=== PATIENT | female | born 1935 | race Caucasian/White ===

== ENCOUNTER 2024-04-29 14:38 | Emergency (ER) | payer MEDICARE, SELFPAY ==
[2024-04-29 14:40] VITALS: BP 182/88
[2024-04-29 16:55] LABS: % Basophils 0.7 % (0-2); % Eosinophils 1.7 % (0-6); % Immature Granulocytes 0.2 % (0-0.5); % Lymphocytes 30.4 % (20.5-51.1); % Monocytes 7.1 % (1.7-9.3); % Neutrophils 59.9 % (42.2-75.2); Absolute Eosinophils 0.1 10^3/uL (0-0.7); Absolute Lymphocytes 1.8 10^3/uL (1.2-3.4); Absolute Monocytes 0.4 10^3/uL (0.1-0.6); Absolute Neutrophils 3.6 10^3/uL (1.4-6.5); Hemoglobin 12.8 g/dL (12.0-16.0); Mean Corp Hgb Conc. 34.6 g/dL (33.0-37.0); Mean Corpuscular Hgb 29.6 pg (27.0-31.0); Mean Corpuscular Volume 85.5 fL (81.0-99.0); Mean Platelet Volume 10.7 fL (7.4-10.4); Nucleated Red Blood Cells % 0 %; Platelet Count 175 10^3/uL (130-400); Red Blood Cell Count 4.33 10^6/uL (4.20-5.40); Red Cell Dist. Width 14.6 % (11.5-14.5); White Blood Cell Count 5.9 10^3/uL (4.8-10.8)
--- NOTE | 2024-04-29 16:59 | ED.GENMED ---
History of Present Illness
General
Chief Complaint: Rectal Bleeding
Time Seen by Provider: 04/29/24 16:00
History of Present Illness
History of Present Illness:
88-year-old female with reported history of rectal cancer presenting to the emergency department for a second opinion. Patient reports that she has been told that her cancer is nonoperative, is on palliative care. She takes tramadol for pain. She
is having worsening of her rectal pain, and would like a surgeon to remove her tumor. She reports blood per rectum. She reports history of appendectomy in the past as well as colostomy. She denies chest pain or difficulty breathing. She notes
nausea without vomiting. Denies fever. Reports that she had been getting her care at [facility]. She has never had chemotherapy. Denies additional acute medical complaints
Phy Exam
Physical Exam
Physical Exam:
General: no clinical signs of dehydration, nontoxic and in no acute distress
HEENT: protecting airway
Neck: appears supple
CV: Normal heart rate, regular rhythm, no evidence of cyanosis
Resp: No accessory muscle use, no increased work of breathing, lungs clear to auscultation bilaterally
Abd: Soft and non-distended, no tenderness to palpation, colostomy in place to left lower quadrant
Extremities: No deformities, no swelling, no erythema, pulses and sensation intact
Neuro: alert, no focal neurologic deficit
: deferred
Rectal: No anita blood per rectum
Psych: Normal affect
Skin: Intact
Course
Orders/Labs/Results
Orders:
Orders
04/29/24 16:38
CT Abd/pelvis W Iv Cont Urgent
Comment:
Reason For Exam: rectal cancer, increased pain
04/29/24 16:42
Complete Blood Count/With Diff Urgent
Comprehensive Metabolic Panel Urgent
PTT Urgent
Prothrombin Time Urgent
04/29/24 19:46
Ketorolac [Toradol] 15 mg IV NOW STA
Abnormal Lab Results
04/29/24
16:42
RDW 14.6 H %
(11.5-14.5)
MPV 10.7 H fL
(7.4-10.4)
Carbon Dioxide 32 H mmol/L
(22-30)
BUN 25 H mg/dl
(7-17)
AST 38 H U/L
(14-36)
04/29/24 16:42
04/29/24 16:42
Vital Signs
Initial and Last Documented VS:
Initial Vital Signs
Temp Pulse Resp BP Pulse Ox
98.1 F 93 20 182/88 93
04/29/24 14:40 04/29/24 14:40 04/29/24 14:40 04/29/24 14:40 04/29/24 14:40
Last Documented Vital Signs
Temp Pulse Resp BP Pulse Ox
98.1 F 91 20 174/73 95
04/29/24 14:40 04/29/24 17:44 04/29/24 17:44 04/29/24 17:44 04/29/24 17:44
MDM/Problems Addressed
MDM/Problems Addressed:
88-year-old female with history of rectal cancer presenting for second opinion for operative removal of her rectal cancer. Vital signs on arrival are significant for hypertension.
On exam, patient is in no acute distress, tearful and anxious. No records of patient from this hospital and her malignancy. No family contacts as well. For this reason, unclear details regarding patient's malignancy and operative possibilities.
For this reason we will obtain laboratory analysis and CT imaging. Will try to touch base with family
17:50 -discussed with [id number] Patience Lindquist in detail. She notes that patient has been evaluated for her cancer, diagnosed with stage IIIb back in November, rectal carcinoma. Patient has refused chemotherapy and radiation. She is only
looking for surgical intervention to remove the tumor in her rectum. She was initially seen at [facility], however then sought care at [facility]. A surgeon at [facility] had agreed to do the surgery, however had told her that it would be a
difficult recovery time so patient had declined the surgery. Patient is currently home on hospice, however has not been taking her medications. She only takes tramadol at nighttime, refuses to take medication during the daytime. She is again
looking for another surgeon to take out her tumor.
20:00 -patient's labs unremarkable. CT consistent with rectal carcinoma, without additional acute findings. Extensive conversation had with patient, no emergent reason for admission. Will provide information for colorectal surgery for patient
second opinion. Patient will return home for her palliative care. Encouraged her to take her pain medications as directed. Return precautions discussed and patient verbalized understanding
*Critical Care Note
Total Time (30-74mins, 75-104mins- exclusive of procedures): Not Applicable
ED Attending Note
-
Portions of this chart may have been created with voice recognition software.� Occasional wrong word or��sound alike� substitutions may have occurred due to the inherent limitations of voice recognition software.
Discharge Plan
Departure
Prescriptions:
No Action
aspirin 81 mg Tablet,Delayed Release (Dr/Ec)
162 mg PO DAILYPRN PRN (Reason: mild pain)
tramadol 50 mg Tablet
50 mg PO Q6HPRN PRN (Reason: moderate pains)
Patient Comments:
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
Preparation H Cream
1 applic AK DAILYPRN PRN (Reason: hemmorriods)
zinc sulfate 50 mg zinc (220 mg) Tablet
50 mg PO DAILY
ascorbic acid (vitamin C) [Vitamin C] 500 mg Tablet
500 mg PO DAILY
ICaps 3,945-1-326-75 dpwn-si-id-unit Tablet Extended Release
1 tab PO DAILY
cholecalciferol (vitamin D3) [Vitamin D3] 50 mcg (2,000 unit) Capsule
50 mcg PO DAILY
magnesium oxide 400 mg magnesium Tablet
400 mg PO DAILY
Referrals:
UNKNOWN - PT DOES,NOT KNOW [Family Provider] -
Interventions
Interventions:
*Risk Screen - Suicide Last Done: 04/29/24 14:40
*General Assessment Last Done: 04/29/24 14:40
*Neglect/Abuse Screening Last Done: 04/29/24 14:40
ED- Fall Risk Assessment Last Done: 04/29/24 14:45
XS-Xbpbgz-Jqzobspggt Assessment Last Done: 04/29/24 14:45
ED- Cardiac Assessment Last Done: 04/29/24 14:45
ED- Pulmonary Assessment Last Done: 04/29/24 14:45
Discharge Date and Time
Print Language: DOMINICAN
[2024-04-29 17:03] LABS: INR 1.08; PT 13.8 Sec (11.4-14.6)
[2024-04-29 17:10] LABS: ALT (SGPT) 32 U/L (0-35); AST (SGOT) 38 U/L (14-36); Alkaline Phosphatase 55 U/L (38-126); Blood Urea Nitrogen 25 mg/dl (7-17); Calcium 9.3 mg/dl (8.4-10.2); Carbon Dioxide 32 mmol/L (22-30); Chloride 102 mmol/L (98-107); Glucose 90 mg/dl (70-99); Potassium 3.7 mmol/L (3.5-5.1); Sodium 139 mmol/L (135-145); Total Bilirubin 0.6 mg/dl (0.2-1.3); Total Protein 6.4 g/dl (6.3-8.2); eGFR > 60.00
[2024-04-29 17:44] VITALS: BP 174/73
[2024-04-29] MEDS: TORADOL 15 MG IV (19:57)
[2024-04-29 20:32] VITALS: BP 170/76
== END 2024-04-29 21:07 | disposition home or self-care (01) ==
LOC: EMR 14:38
PROVIDERS: EMERGENCY PHYSICIAN Student in an Organized Health Care Education/Training Program
DX: C20 Malignant neoplasm of rectum (principal); K62.5 Hemorrhage of anus and rectum; Z91.148 Patient's other noncompliance with medication regimen for other reason; Z93.3 Colostomy status; Z79.82 Long term (current) use of aspirin; Z88.5 Allergy status to narcotic agent
CPT/HCPCS: 99285; 96374; 74177; 80053; 85025; 85610; 85730; Q9967